=== PATIENT | male | born 1960 | race Caucasian/White ===

== ENCOUNTER → 2016-10-12 | Outpatient (CLI) | payer OTHER, MEDICAID ==
--- NOTE | 2016-10-12 15:51 | US ---
EXAM DESCRIPTION: Scrotal ultrasound. CLINICAL HISTORY: Gynecomastia. COMPARISON: None. TECHNIQUE: High resolution evaluation with grayscale and Doppler interrogation. FINDINGS: Right: Testicle measures 3.5 x 3.3 x 2.3 cm, and the epididymal head is grossly normal for thickness. Testicular parenchyma is unremarkable without focal lesion or abnormal vascularity. Small hydrocele and varicocele noted. Left: Testicle measures 3.8 x 3.1 x 2.1 cm, and the epididymal head is grossly normal for thickness. Testicular parenchyma is unremarkable without focal lesion or abnormal vascularity. Small hydrocele and varicocele. IMPRESSION: Today's exam demonstrates small bilateral hydroceles and varicoceles. Bilateral testicles and epididymides are unremarkable. Electronically signed by: Jairon Simon MD 10/12/2016 15:49
== END ==
LOC: US 13:25
PROVIDERS: ATTEND Internal Medicine
DX: N62 Hypertrophy of breast (principal); N43.3 Hydrocele, unspecified; I86.1 Scrotal varices

== ENCOUNTER → 2017-01-07 | Outpatient (CLI) | payer OTHER, MEDICAID ==
--- NOTE | 2017-01-07 10:21 | MAM ---
EXAM DESCRIPTION: Diagnostic Mammo, bilateral CLINICAL HISTORY: 56 yearsMaleGYNECOMASTIA. Right breast more tender since the prior examination. COMPARISON: Bilateral diagnostic digital mammography 08/19/2016. Ultrasound right breast 09/02/2016. TECHNIQUE: Bilateral digital full field MLO and CC projections. CAD was utilized. FINDINGS: The retroareolar density in the left breast has decreased since the prior examination. Retroareolar density in the right breast is stable. No skin thickening or nipple retraction. No abnormal calcifications. Sonographic findings: broad retroareolar hypoechoic tissue with ill-defined borders and no vascularity. Parallel orientation and no posterior features. IMPRESSION: BI-RADS CATEGORY: 2 BENIGN. Follow-up: Clinically with repeat imaging if indicated. The results and follow-up were discussed in person with the patient. Communication explaining the results and followup will be mailed to the patient and referring care provider. Electronically signed by: Jeremiah Gomes MD 01/07/2017 10:20 AM CDT
--- NOTE | 2017-01-07 13:59 | US ---
EXAM DESCRIPTION: Breast,Right ultrasound. CLINICAL HISTORY: 56 yearsMaleGYNECOMASTIA. Increasing tenderness in the right breast nipple since prior mammogram examination. COMPARISON: Diagnostic digital mammographic examination 09/02/2016. Diagnostic targeted right breast ultrasound 09/02/2016. Diagnostic digital bilateral mammographic examination today. TECHNIQUE: Transcutaneous scanning of the right retroareolar breast utilizing two-dimensional and Doppler modes. Scanning performed by the key account coordinator and Dr. Gomes. FINDINGS: Broad, retroareolar hypoechoic tissue with ill-defined borders and no vascularity. Parallel orientation and no posterior features. Stable compared to the prior ultrasound examination August 2016. IMPRESSION: BI-RADS Category 2: Benign. Follow-up: Clinically with repeat imaging if indicated. The findings and the follow-up plan were reviewed in person with the patient after the examination. Electronically signed by: Jeremiah Gomes MD 01/07/2017 1:58 PM CDT
== END | disposition home or self-care (01) ==
LOC: MAMMO 08:52
PROVIDERS: ATTEND Radiology Radiation Oncology

== ENCOUNTER → 2017-03-14 | Outpatient (CLI) | payer OTHER | END | disposition home or self-care (01) | LOC: YCFC.O 07:58 | PROVIDERS: ATTEND Anesthesiology Pain Medicine | DX: Z79.891 Long term (current) use of opiate analgesic (principal) ==

== ENCOUNTER → 2017-03-31 | Outpatient (CLI) | payer OTHER ==
--- NOTE | 2017-04-01 04:50 | RAD ---
Procedure: XR CHEST 2 VIEWS Exam Date: 03/31/2017 Ordering Provider: Maureen Anton Clinical Indication: COPD, UNSPECIFIED Comparison: 09/09/2015 Findings: Cardiac silhouette: Normal Pulmonary vasculature : Normal Mediastinal contour: Normal Aortic contour: Normal Focal lung consolidation: No focal lung consolidation. COPD/emphysema. Pleural effusion: Pleural scarring at the right costophrenic angle versus a small right pleural effusion. No left pleural effusion. Pneumothorax: None Acute bony or soft tissue abnormality: No acute osseous abnormalities. Remote right-sided rib fractures. Impression: 1. Pleural scarring at the right costophrenic angle versus a small right pleural effusion. 2. COPD/emphysema. Electronically signed by: Mihir Dc MD 04/01/2017 4:49 AM CDT
== END | disposition home or self-care (01) ==
LOC: RAD 13:17
PROVIDERS: ATTEND Nurse Practitioner Family
DX: J44.9 Chronic obstructive pulmonary disease, unspecified (principal)

== ENCOUNTER → 2017-04-01 | Outpatient (CLI) | payer MEDICAID | LOC: YCFC.O 08:57 | PROVIDERS: ATTEND Nurse Practitioner Family | DX: E03.9 Hypothyroidism, unspecified (principal); Z12.5 Encounter for screening for malignant neoplasm of prostate; Z13.220 Encounter for screening for lipoid disorders | CPT/HCPCS: 36415; 80053; 80061; 84443; 85025; G0103 ==

== ENCOUNTER → 2017-06-07 | Outpatient (CLI) | payer OTHER | END | disposition home or self-care (01) | LOC: YCFC.O 14:47 | PROVIDERS: ATTEND Anesthesiology Pain Medicine | DX: Z79.891 Long term (current) use of opiate analgesic (principal) ==

== ENCOUNTER → 2017-06-22 | Outpatient (CLI) | payer OTHER ==
--- NOTE | 2017-06-24 08:05 | MRI ---
EXAM DESCRIPTION: Cervical Spine w/wo Contrast CLINICAL HISTORY: OTHER CERVICAL DISC DEGENERATION, UNSP CERVICAL RE COMPARISON: None Available. TECHNIQUE: MRI of the cervical spine is performed according to our usual protocol. Multiplanar pre and postcontrast imaging was obtained. FINDINGS: Normal alignment of the cervical spine is present with anterior plating and screws fixation at the C3-4 level and anterior interbody fusion at the C5-C7 level with anterior interbody fusion. Very slight straightening of the spine with normal alignment through this region is apparent. Thecal sac appears adequate but in the lower range of normal through this region with no abnormality of the foramen magnum. No intradural or intramedullary abnormality is noted. An area of clinical concern is marked posteriorly at the C2 level with a tablet the foramen magnum is unremarkable. No marrow abnormalities or abnormal fluid collections or soft tissue masses in the prevertebral or paraspinous region is evident. C2-3: Disc desiccation with normal disc contour and adequate canal and neural foramina. C3-4: Anterior plating and screw fixation with narrowed but incompletely of bony fused disc space with very slight annular prominence minimally prominent to the right of midline with adequate canal and left neural foramen and mild narrowing of the right neural foramen from disc bulge and uncinate process hypertrophy. C4-5: Disc desiccation with mild annular bulge minimally more prominent to the right of midline with adequate AP diameter of the canal and mild narrowing of both neural foramina. No significant stenosis or neural compression. C5-6: Adequate central canal in the lower range of normal with disc annular prominence slightly more prominent to the right of midline with graft material and anterior interbody fusion and susceptibility artifact at the anterior aspect of the disc space with adequate right and modestly narrowed left neural foramen. C6-7: Graft material and prior anterior interbody fusion with normal alignment of the spine and no significant disc bulge with adequate canal and neural foramina. C7-T1: the disc is well hydrated. There is no loss of height. There is no bulging. The facets are unremarkable with no significant hypertrophy. There is no stenosis or impingement. Postcontrast imaging demonstrates no abnormal areas of enhancement or intradural or intramedullary mass. Spinal canal is adequate without significant central stenosis. IMPRESSION: 1. Prior anterior plating and screw fixation and probable attempted anterior interbody fusion at the C3-4 level and graft material and anterior interbody fusion from C5 through C7 with normal alignment of the bony spinal canal and adequate central canal at each level. 2. Mild residual disc annular bulges at C3-4, C4-5, and C5-6 with very slight right-sided prominence at each level. No significant central stenosis. 3. Mild narrowing of the right C3-4 neural foramen and both neural foramina at C4-5 and modest narrowing of the left neural foramen at C5-6. 4. Essentially normal appearance of the disc and canal and foramina at C6-7 and C7-T1. Electronically signed by: Jacob Mcconnell MD 06/24/2017 8:04 AM CDT
== END | disposition home or self-care (01) ==
LOC: MRI 08:48
PROVIDERS: ATTEND Anesthesiology Pain Medicine
DX: M50.30 Other cervical disc degeneration, unspecified cervical region (principal)

== ENCOUNTER → 2018-01-11 | Outpatient (CLI) | payer OTHER | LOC: YCFC.O 12:46 | DX: E03.9 Hypothyroidism, unspecified (principal); M54.5 Low back pain; N40.1 Benign prostatic hyperplasia with lower urinary tract symptoms ==

== ENCOUNTER → 2018-02-21 | Outpatient (CLI) | payer OTHER ==
--- NOTE | 2018-02-21 14:43 | RAD ---
EXAM DESCRIPTION: Knee,Left Complete CLINICAL HISTORY: 57 years Male, KNEE PN TECHNIQUE: 3 views of the left knee were performed. COMPARISON: None available. FINDINGS: The visualized bones appear well mineralized. No acute fracture or dislocation. No evidence of suprapatellar joint effusion. The soft tissues appear grossly unremarkable. IMPRESSION: Normal radiographs of the left knee. Electronically signed by: Tg King MD 02/21/2018 2:42 PM CDT
--- NOTE | 2018-02-21 14:44 | RAD ---
EXAM DESCRIPTION: Knee,Right Complete CLINICAL HISTORY: 57 years Male, KNEE PN TECHNIQUE: 3 views of the right knee were performed. COMPARISON: None available. FINDINGS: The visualized bones appear well mineralized. No acute fracture or dislocation. No evidence of suprapatellar joint effusion. The soft tissues appear grossly unremarkable. Normal radiographs of the right knee. IMPRESSION: Normal radiographs of the right knee. Electronically signed by: Tg King MD 02/21/2018 2:42 PM CDT
== END ==
LOC: RAD 12:05
DX: M25.562 Pain in left knee (principal)

== ENCOUNTER → 2018-04-26 | Outpatient (CLI) | payer OTHER ==
--- NOTE | 2018-04-27 15:24 | RAD ---
EXAM DESCRIPTION: Pelvis CLINICAL HISTORY: 57 years Male, PAIN IN RIGHT HIP COMPARISON: None. TECHNIQUE: AP radiograph of the pelvis was performed. FINDINGS: The pelvic ring appears grossly intact on this single AP radiograph. No gross fracture identified the femoral head is well contained and the stomach are fossa.. Bilateral sacroiliac joints appear normal. Bilateral hip joints appear normal. The visualized lumbo-sacral spine demonstrates mild degenerative changes. IMPRESSION: Single AP radiograph of the pelvis demonstrates grossly intact pelvic ring. Electronically signed by: Adrian Chua MD 04/27/2018 3:22 PM CDT
--- NOTE | 2018-04-27 15:28 | RAD ---
EXAM DESCRIPTION: Hip, right 2 Views CLINICAL HISTORY: 57 years Male, PAIN IN RIGHT HIP COMPARISON: CT pelvis September 07, 2015. FINDINGS: The visualized bones demonstrate mild osteopenia.No acute fracture or dislocation. The soft tissues appear grossly unremarkable. IMPRESSION: Grossly normal radiographs of the right hip. Electronically signed by: Adrian Chua MD 04/27/2018 3:27 PM CDT
== END ==
LOC: RAD 16:02
PROVIDERS: ATTEND Family Medicine
DX: M25.551 Pain in right hip (principal)

== ENCOUNTER → 2018-06-01 | Outpatient (CLI) | payer OTHER ==
--- NOTE | 2018-06-01 10:09 | RAD ---
EXAM DESCRIPTION: Pelvis CLINICAL HISTORY: 57 years Male, PAIN IN RIGHT PELVIS COMPARISON: None. FINDINGS: The bony pelvic ring appears intact with no disruption of the symphysis or SI joints and the superior and inferior pubic rami intact. Fusion of the lumbosacral junction is evident bilaterally. Small component of the SI joints inferiorly appear open but I am suspicious the upper SI joints are fused. IMPRESSION: Mild degenerative changes with diffuse lumbosacral junction and probable SI joints. Otherwise negative pelvis one view. Electronically signed by: Jacob Mcconnell MD 06/01/2018 10:07 AM CDT
--- NOTE | 2018-06-01 10:10 | RAD ---
EXAM DESCRIPTION: Knee,Left Complete CLINICAL HISTORY: 57 years, Male, PAIN IN LEFT KNEE COMPARISON: February 21, 2018 TECHNIQUE: Four views of the left knee FINDINGS: The knee is normally aligned and mineralized. No fracture or deformity or destructive process is seen. No effusion or mass or foreign body is noted. Mild degenerative changes are evident. IMPRESSION: 1. Normal left knee four views. Electronically signed by: Jacob Mcconnell MD 06/01/2018 10:09 AM CDT
== END ==
LOC: RAD 08:54
PROVIDERS: ATTEND Orthopaedic Surgery
DX: M25.562 Pain in left knee (principal); M25.551 Pain in right hip

== ENCOUNTER → 2018-06-09 | Outpatient (CLI) | payer OTHER ==
--- NOTE | 2018-06-09 09:34 | MRI ---
EXAM DESCRIPTION: Lumbar Spine w/o Contrast CLINICAL HISTORY: SCIATICA COMPARISON: MRI lumbar spine January 01, 2008, CT lumbar spine September 09, 2015 TECHNIQUE: MRI of the lumbar spine is performed according to our usual protocol with axial and sagittal multi sequence imaging. FINDINGS: Sagittal T2 images reveal decreased signal intensity consistent with desiccation of the intervertebral discs at levels T12-L1 through L4-5. Preservation of the L5-S1 disc suggest transitional vertebrae. Posterior annular bulges are mild. No prevertebral mass or aneurysm. Lower cord and conus appear normal. Tip of the conus is behind T12-L1. Postoperative changes are seen in the dorsal spine at the L5 level. Compared to previous MRI, posterior annular bulges appears slightly worsened and neural foraminal narrowing appears very similar. No new focal disc herniation or progressive spinal stenosis since previous MRI exam. Previous CT showed fusion at L4-5 and significant multilevel neural foraminal narrowing. Sagittal T1 images reveal benign marrow signal characteristics. Normal T1 signal intensity and appearance of the lower cord and conus. Sagittal STIR images are negative for marrow edema within the vertebral bodies or posterior elements. No paraspinous fluid collection or cystic lesion. Axial T1 and T2-weighted images were obtained to evaluate the disc levels. L1-L2: Moderate diffuse posterior annular bulge without focal herniation. No spinal stenosis. There is moderate bilateral neural foraminal narrowing. Facets appear hypertrophic with marked narrowing of subarticular recesses bilaterally. Normal appearance of the lower cord and conus. L2-3: Moderate diffuse posterior annular bulge without focal herniation or significant spinal stenosis. There is moderately severe right and moderate left neural foraminal narrowing. Hypertrophic facet spurring is seen with ligamentum flavum thickening causing moderately severe right and moderate left subarticular recess narrowing. L3-4: Moderate diffuse posterior annular bulge without spinal stenosis. There is neural foraminal narrowing of moderate severity on the left with milder narrowing on the right. Marked facet hypertrophic spurring is present with ligamentum flavum thickening causing severe left and moderate right subarticular recess narrowing. L4-5: Irregular appearance of the posterior margin of L4-5 disc is seen consistent with previous left paracentral discectomy. Posterior laminectomy defect is seen in the facets appear fused posteriorly. No significant narrowing of subarticular recesses or neural foramina. Findings are stable at this level compared to previous study in 2008. L5-S1: Posterior facets are hypertrophic with mild narrowing of subarticular and lateral recesses bilaterally. No significant neural foraminal narrowing or spinal stenosis. No significant posterior annular bulge at this level and there is no focal disc herniation. No change in the appearance at this level since previous MRI in December 2007. Sacrum appears intact. No retroperitoneal mass or aneurysm. IMPRESSION: Negative for acute appearing disc herniation or significant spinal stenosis. Multilevel degenerative facet disease with neural foraminal narrowing as described. Electronically signed by: Anjel Villegas MD 06/09/2018 9:32 AM CDT
== END ==
LOC: MRI 08:00
PROVIDERS: ATTEND Orthopaedic Surgery
DX: M54.31 Sciatica, right side (principal)

== ENCOUNTER → 2018-06-15 | Outpatient (CLI) | payer OTHER ==
--- NOTE | 2018-06-16 09:33 | CT ---
Procedure: CT LUNG SCREENING Exam Date: 06/15/2018. Ordering Provider: Jorge De León Clinical Indication: 40 pack-year smoking history. This patient meets eligibility criteria for low-dose CT lung cancer screening. Comparison: CT scan of the chest and thorax with IV contrast 05/09/2015. Technique: Using a multislice scanner, sequential helical axial imaging was obtained in the thorax, 2.5 mm thickness, 2.5 mm separation, from the level of the thoracic inlet through the lung bases without IV contrast. A low dose protocol was utilized. CTDI: 1.76 mGy. 120. kVp. 45 mA. 2D sagittal and coronal reconstructed images, 6.0 mm thickness, were obtained. This exam was performed according to our departmental dose optimization program which includes use of automated exposure control, adjustment of the mA and/or kV according to patient size and/or use of iterative reconstruction technique. FINDINGS: Lungs and large airways: Bilateral small blebs and dilated airspaces more prevalent in the upper lung and decreasing in frequency toward the lung bases. 5 mm mean diameter, solid nodule in the left apex on series 2, image 20 with extensions to the pleura. A second nodule smaller in size and density seen posterior on the same image. Both are stable since the prior study. A solid nodule with central calcification with mean diameter 6 mm can be seen on image 30, with pleural extensions. This is stable since the prior study. A 6 mm mean diameter nodule almost completely calcified is present in the left posterior lateral apex on image 35. This nodule has pleural extensions is also stable since the prior study. Linear density extending from the posterior left hemidiaphragmatic pleura to the posterior left pleura in the left lower lobe is stable. This is not seen on the prior study. Calcified nodule, mean diameter 6 mm, in the anterior right upper lobe on image 51 with no soft tissue density is stable. Linear and branching densities in the right lower lobe associated with the diaphragmatic pleura and chest wall pleura are stable since the prior study. Pleura: Bilateral apical thickening. No pneumothorax. No pleural effusions bilaterally. Scattered bilateral focal thickening. Mediastinum and cuauhtemoc: Evaluation limited by lack of IV contrast and screening technique. Scattered lymph nodes with no dominant soft tissue masses or lymph nodes. Calcifications in the mediastinum, right hilum, and tracheal bronchial cartilage. Heart and great vessels: Calcified coronary arteries. Calcified proximal brachiocephalic vessels. Minimal calcifications in the aortic arch and descending thoracic aorta. Chest wall, lower neck, axillae: Evaluation limited by lack of IV contrast and screening technique. No dominant soft tissue masses. Heterogeneous thyroid gland. Upper abdomen: Included peritoneal space with no fluid or free air. No large soft tissue mass. Bones: Evaluation limited by screening MIP technique. Multiple levels of bridging osteophytes and narrowed thoracic disc spaces. No obvious blastic or lytic lesions. IMPRESSION: Emphysematous changes in the lungs bilaterally more prevalent from the upper lung miller and less prevalent to the lower lung miller. Nodules in the left lung apex and right upper lobe are stable since the prior study in April 2015 and some are partially or completely calcified. Parenchymal scarring in the left lower lobe posterior recess new since the prior study. Please refer to lung RADS category below, with follow-up.* *Lung RADS category Category 2 - Nodules with a very low likelihood (less than 1%) of becoming a clinically active cancer due to size or lack of growth. Nodules: Solid or part solid nodule(s) less than 6mm, new solid nodule less than 4mm. Ground glass nodule(s) less than 20mm or unchanged or slow growing ground glass nodule 20mm or greater. Cat 3 or 4 nodule unchanged for 3 or more months. Follow-up: Continue annual screening with a Low Dose Chest CT in 12 months for re-evaluation. Electronically signed by: Jeremiah Gomes MD 06/16/2018 9:31 AM CDT
== END ==
LOC: CT 13:00
PROVIDERS: ATTEND Family Medicine
DX: Z87.891 Personal history of nicotine dependence (principal)

== ENCOUNTER → 2018-11-21 | Outpatient (CLI) | payer OTHER | LOC: LAB.O 15:20 | PROVIDERS: ATTEND Family Medicine | DX: Z79.899 Other long term (current) drug therapy (principal) ==

== ENCOUNTER → 2019-05-16 | Outpatient (CLI) | payer OTHER | LOC: LAB.O 15:16 | PROVIDERS: ATTEND Family Medicine | DX: D64.9 Anemia, unspecified (principal); R74.8 Abnormal levels of other serum enzymes; Z79.899 Other long term (current) drug therapy ==

== ENCOUNTER → 2019-06-18 | Outpatient (CLI) | payer OTHER ==
--- NOTE | 2019-06-19 17:30 | CT ---
Procedure: CT LUNG SCREENING Exam Date: 06/18/2019 Ordering Provider: Jorge De León Clinical Indication: LUNG SCREEN . Current smoker. Patient has smoked 5 cigars daily for 20 years This patient meets eligibility criteria for low-dose CT lung cancer screening. Comparison: Low-dose CT lung cancer screening examination 06/15/2018. Technique: Using a multislice scanner, sequential helical axial imaging was obtained in the thorax, 2.5 mm thickness, 2.5 mm separation, from the level of the thoracic inlet through the lung bases without IV contrast. A low dose protocol was utilized for BMI less than 30: BMI: 17.2. CTDI: 1.76 mGy. 120. kVp. 45 mA. DLP: 80.56 mGy-centimeters. 2D sagittal and coronal reconstructed images, 6.0 mm thickness, were obtained. This exam was performed according to our departmental dose optimization program which includes use of automated exposure control, adjustment of the mA and/or kV according to patient size and/or use of iterative reconstruction technique. Nodule measurements under 10 mm are given as mean value of 3 axes diameters. FINDINGS: Lungs and large airways: Bilateral multiple blebs in the parenchyma in a centrilobular distribution more prevalent in the upper lobes. Stable multiple calcified nodules and parenchymal scars in the left upper lobe and in the anterior inferior right upper lobe since the prior study, the mostly calcified nodule in the left lobe on image now demonstrates a extension into the posterior medial pleura, with new solid component measuring 2.7 x 1.6 x 1.1 x 0.9 with largest axis craniocaudal. Posterior edge is flattened suggesting abutment of a fissure. Images -. A new partly solid nodule is posterior to the above density and measuring 1.4 x 1.1 cm with solid component approximately 7.1 mm, visualized on images -34. New, partially solid process measuring 1.7 x 1.3 x 1.1 cm in the medial right upper lobe near the apex associated with blebs and bulla. Superior solid component 7.8 mm and inferior solid component 7.9d mm on images 11/14-35. Stable nodular densities and pleural parenchymal scarring in the right lower lobe with less involvement of the left lower lobe. Slight decrease in scarring left lower lobe in the posterior recess. Pleura and space: Slight increase in bilateral pleural thickening but no effusion or pneumothorax. Mediastinum and cuauhtemoc: evaluation limited by low dose technique and lack of IV contrast. Calcified hilar nodes and mediastinal nodes again seen. No new or enlarging nodes are soft tissue masses. Heart and great vessels: Coronary artery calcifications and minimal atherosclerotic calcifications in the aorta and brachiocephalic vessels. Stable ectasia of the ascending aorta. Chest wall, lower neck, axillae: Evaluation also limited by same factors as described above. Minimal amount of adipose tissue no new masses. Upper abdomen: Evaluation limited by low-dose technique. Small sliding hiatal hernia which may have been pre-existing. Splenic calcifications. Included spleen and adrenal glands normal size. Gallbladder partially visualized. Aortic calcifications. Osseous structures: Evaluation limited by low dose MIP technique. Multiple levels of spondylosis on the thoracic spine. Mild dextroscoliosis. Multiple old rib fractures with bony fusion of 2 of the ribs right lateral aspect. Stable from the prior study. IMPRESSION: New densities and part solid nodules in the bilateral upper lobes associated with previous calcified nodules and scarring. The morphology of these densities indicates a possible inflammatory or infectious process. Decreased pleural parenchymal scarring in the left lower lobe. Stable right lateral rib deformities from prior trauma. [facility] Best Practice recommendations: Please see below for Lung RADS category and FOLLOW-UP.* *Lung RADS category Category 4a - Findings for which additional diagnostic testing and/or tissue sampling is recommended (5 - 15% malignancy probability). Nodules: Solid nodule(s) 8mm to less than 15mm at baseline, new 6mm to under 8mm solid nodule, or growing less than 8mm nodule. Part solid nodule measuring more than 6mm in total with a solid component 6mm to less than 8mm, or with a new or growing less than 4mm solid component. Endobronchial nodule. Follow-up: Please return for a Low Dose Chest CT in 3 months for re-evaluation. PET/CT may be used when there is an 8mm or greater solid component. Consider 1 month follow up, if clinical indication of acute inflammation or infection. Electronically signed by: Jeremiah Gomes MD 06/19/2019 5:28 PM CDT
== END ==
LOC: CT 14:30
PROVIDERS: ATTEND Family Medicine
DX: Z87.891 Personal history of nicotine dependence (principal); R91.8 Other nonspecific abnormal finding of lung field; M95.4 Acquired deformity of chest and rib

== ENCOUNTER → 2019-08-15 | Outpatient (CLI) | payer OTHER | LOC: YCFC.O 15:04 | PROVIDERS: ATTEND Family Medicine | DX: R34 Anuria and oliguria (principal); E03.9 Hypothyroidism, unspecified; R74.8 Abnormal levels of other serum enzymes; D64.9 Anemia, unspecified; Z79.899 Other long term (current) drug therapy ==

== ENCOUNTER → 2019-10-01 | Outpatient (CLI) | payer OTHER ==
--- NOTE | 2019-10-02 11:36 | CT ---
EXAM DESCRIPTION: Chest w/Contrast : Computed Tomography. CLINICAL HISTORY: 59 years Male Solitary pulmonary nodule COMPARISON: Low-dose CT lung cancer screening examination 06/18/2019. TECHNIQUE: Spiral-axial scans at 5 mm intervals through the lungs and thorax with IV contrast. 2.5 x 5 mm lung algorithm axial reconstructions. Coronal and sagittal 2.0 Mm reconstructions. No adverse reactions. Total Exam DLP: 264.1 mGy-cm. This exam was performed according to our departmental dose-optimization program which includes automated exposure control, adjustment of the mA and/or kV according to patient size and/or use of iterative reconstruction technique; to reduce radiation dose to as low as reasonably achievable (ALARA). Nodule measurements under 10 mm are given as mean value of 3 axes diameters. FINDINGS: Lungs and large airways: Multiple bilateral nodular densities and regions of scarring are again seen in the upper lobes. Decreasing density/nodule/scarring in the medial left apex on axial series 4, images 31-39. Stable lateral right apex pleural-parenchymal scarring. New, rectangular-shaped density with mostly straight, circumscribed margins and no spiculation. Dimensions are 1.3 x 0.9 cm with no calcification. Extension To the pleura in the medial right upper lobe above the filemon on axial images 4/43-46. Stable, density/ nodules and scarring with calcification lateral left apex. Stable nodule with minimal spiculation but also calcifications on axial image 4/20 8-31. Also decreasing size of density most likely related to a segmental margin on axial images 4/31-40. Soft tissue nodule and calcification in the left upper lobe on images 4/34-37 are stable. Bilateral blebs and bulla more prevalent in the upper lung miller than the lower miller. Stable pleural parenchymal scarring in the bilateral lower lobes, more right than left. Pleural spaces: More scarring in the bilateral apices compared to the bases. Large apical bulla on the left. Mediastinum and Leydi: Small lymph nodes. Calcified nodes. No dominant soft tissue mass. Great vessels and Heart: Minimal atherosclerotic calcification brachiocephalic vessels, aorta, and left main and LAD coronary arteries. tab Soft tissues of neck base, axillae, and chest wall: Negative. Upper abdomen: No free air or free fluid. Atherosclerotic calcifications of the aorta. Osseous structures: Spondylosis thoracic spine. Bilateral shoulder arthrosis more right than left. No lytic or blastic lesions. Bilateral sternoclavicular arthrosis.. IMPRESSION: 1. New focal density approximately 1.3 x 0.9 cm,, more likely to represent infectious or reactive process than nodule, in the medial right upper lobe above the filemon level. Also appears similar to previous densities which appear and then resolve on subsequent scans. Other densities in the bilateral apices and upper lobes are stable or decreased in size since the prior screening study, (including the partially solid nodule in the right upper lobe). Calcified nodules are also stable. According to Fleischner Society guidelines for multiple nodules, follow-up chest CT scan recommended at 3-6 months then consider follow-up CT scan 18-24 months. Please see below*. *2017 Fleischner Society Recommendations for Multiple Solid Lung Nodules Follow-Up base on size (average of long- and short-axis diameters). Use most suspicious nodule for followup. Nodule Size (mm) >8 Low-Risk Patient: CT at 3-6 months, then consider CT at 18-24 months Nodule Size (mm) >8 High-Risk Patient: CT at 3-6 months, then at 18-24 months Electronically signed by: Jeremiah Gomes MD 10/02/2019 11:34 AM [facility]
== END ==
LOC: CT 09:00
PROVIDERS: ATTEND Radiology Radiation Oncology
DX: R91.1 Solitary pulmonary nodule (principal); R91.8 Other nonspecific abnormal finding of lung field

== ENCOUNTER → 2020-03-14 | Outpatient (CLI) | payer OTHER ==
--- NOTE | 2020-03-17 11:02 | CT ---
EXAM DESCRIPTION: Abdomen/Pelvis w/wo Contrast: Computed Tomography. CLINICAL HISTORY: ABDOMINAL PAIN COMPARISON: Low-dose CT lung cancer screening examination with IV contrast today and without IV contrast May 2019. CT scan of the chest with contrast regular dose October 01. CT scan of the pelvis 2014. TECHNIQUE: Spiral-axial scans at 2.5 x 2.5 mm intervals through the abdomen and pelvis before and after 75 mL Optiray 320 nonionic IV contrast. Also Gastrografin oral contrast. Coronal and sagittal 2.0 mm reconstructions. No delayed scans. N no adverse reactions. Total Exam DLP 561 mGy - cm. This exam was performed according to our departmental CT dose-optimization program which includes automated exposure control, adjustment of the mA and/or kV according to patient size and/or use of iterative reconstruction technique; to reduce radiation dose to as low as reasonably achievable (ALARA). FINDINGS: Lung bases and pleura: Please see report and images on low-dose CT scan of chest with IV contrast on this visit. Liver, Stomach, Spleen, Adrenal Glands: Splenic calcifications. There are size upper normal limits. Stomach and adrenal glands are negative. Pancreas, Gallbladder, Ducts: Gallbladder negative. Pancreas small and not well seen. Minimal dilation of the common bile duct in the pancreatic head. Kidneys and Ureters: Negative. Mesentery: Evaluation limited due to decreased amount of mesentery and diffuse small bowel gas. No free fluid or free air. Aorta: Moderate atherosclerotic calcification predominantly involving the renal artery origins. Also involving the bilateral proximal common iliac arteries with possible stenosis on the left. Small Bowel: Diffuse air-fluid levels with mild distention; less distention by gas, with oral contrast in the distal ileum. Terminal Ileum/Cecum: Normal caliber containing oral contrast. Appendix not seen. No inflammatory changes. Colon: Contrast throughout with minimal fecal matter and fluid. No significant air-fluid levels or distention. No inflammatory changes. Pelvic Organs: No free fluid. Prostate gland abutting the base of the bladder. Spine and Bony Pelvis: Again noted is transitional lumbosacral vertebra, designated sacralized L5 with bilateral sacral and iliac articulations. Consistent with prior lumbar spine imaging. Spondylosis L4-5 and L5-S1 with disc space loss. Minimal arthrosis bilateral hip joints. Abdominal Wall/Back Soft Tissues: Negative. IMPRESSION: 1. Minimal ileus or bowel stasis small bowel but no obstruction. No free air or free fluid. No inflammatory changes. 2. Significant atherosclerotic occlusive disease in the distal aorta and proximal common iliac arteries with possible stenosis left common iliac artery. 3. 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 Electronically signed by: Jeremiah Gomes MD 03/17/2020 11:00 AM CDT
--- NOTE | 2020-03-17 11:35 | CT ---
EXAM DESCRIPTION: Chest w/Contrast : Computed Tomography. CLINICAL HISTORY: 59 years Male NODULE/FOLLOW UP COMPARISON: Chest CT scan with IV contrast October 01. Low-dose CT lung cancer screening examination May 2019. CT scan abdomen and pelvis without and with IV contrast with oral contrast today. TECHNIQUE: Spiral-axial scans at 2.5 mm intervals through the lungs and thorax with IV contrast. No adverse reaction. Low-dose protocol for BMI less than 30 (17.2). 6.0 Mm reconstructions. 120 KVP. 45 MA. Total Exam DLP: 1.76 mGy-cm. This exam was performed according to our departmental dose-optimization program which includes automated exposure control, adjustment of the mA and/or kV according to patient size and/or use of iterative reconstruction technique; to reduce radiation dose to as low as reasonably achievable (ALARA). Nodule measurements under 10 mm are given as mean value of 3 axes diameters. FINDINGS: Lungs and large airways: Bilateral centrilobular blebs with some located peripheral. Minimal perihilar peribronchial wall cuffing. Nodules with calcifications and scarring in the apex and the left upper lobe stable. Bulla in the right apex no interval change. Calcified nodule anterior right upper lobe. Pleural parenchymal scarring in all lobes with stable nodular-type scarring in the upper lobes and right lower lobe. Pleural spaces: Multifocal bilateral thickening stable. No new calcifications. Mediastinum and Leydi: Calcifications. Lymph nodes. Stable with no dominant soft tissue mass. Great vessels and Heart: Atherosclerotic calcifications in the coronary arteries, aorta. Soft tissues of neck base, axillae, and chest wall: Unremarkable. Upper abdomen: Please refer to images and report from CT scan abdomen and pelvis on this visit. Osseous structures: Spondylosis multiple levels of the thoracic spine. Arthrosis sternoclavicular joints and the right glenohumeral joint. Old right lateral rib fractures with bridging callus formation at one level IMPRESSION: 1. Moderate emphysematous changes more prevalent in the upper lung miller. Multiple nodular regions of scarring with and without calcifications more prevalent in the upper lung miller with pleural parenchymal scarring in every lobe. Stable since the prior study. No abnormal enhancement. No new abnormal nodules and no mass. No new or chronic infiltrate. [facility] Best Practice Recommendations: please see below for Lung RADS category and FOLLOW-UP.* *Lung RADS category CATEGORY 2- Nodules with a very low likelihood (less than 1%) of becoming a clinically active cancer due to size or lack of growth. Nodules: Perifissural nodule(s) < 10 mm. (526mm3). Solid or part solid nodule(s) less than 6mm (113.1 mm3), new solid nodule less than 4mm (33.5 mm3). Ground glass nodule(s) less than 30mm (86870.2 mm3) or unchanged or slow growing ground glass nodule 30mm or greater. Cat 3 or 4 nodule unchanged for 3 or more months. FOLLOW-UP: Continue annual screening with a Low Dose Chest CT in 12 months for re-evaluation. Electronically signed by: Jeremiah Gomes MD 03/17/2020 11:33 AM CDT
== END ==
LOC: CT 15:00
PROVIDERS: ATTEND Family Medicine
DX: R91.8 Other nonspecific abnormal finding of lung field (principal); J43.9 Emphysema, unspecified; E03.9 Hypothyroidism, unspecified; E78.5 Hyperlipidemia, unspecified; I70.8 Atherosclerosis of other arteries; I70.0 Atherosclerosis of aorta; K63.9 Disease of intestine, unspecified; M47.896 Other spondylosis, lumbar region; R10.9 Unspecified abdominal pain; M43.8X7 Other specified deforming dorsopathies, lumbosacral region; Z72.0 Tobacco use

== ENCOUNTER → 2020-03-18 | Outpatient (CLI) | payer OTHER | LOC: YCFC.O 15:10 | PROVIDERS: ATTEND Family Medicine | DX: R10.13 Epigastric pain (principal); Z12.5 Encounter for screening for malignant neoplasm of prostate ==

== ENCOUNTER → 2020-07-30 | Outpatient (CLI) | payer OTHER | LOC: YCFC.O 13:03 | PROVIDERS: ATTEND Family Medicine | DX: Z20.828 Contact with and (suspected) exposure to other viral communicable diseases (principal) ==